=== PATIENT | male | born 1940 | race Asian ===

== ENCOUNTER 2021-01-11 01:21 | Day surgery (SDC) | payer MEDICARE, MEDICAID, SELFPAY ==
[2020-12-30 12:30] VITALS: BMI 21.5
[2021-01-11 10:12] VITALS: BP 154/55; PULSE 66; RESP 16; TEMP 36.2; O2SAT 99; BMI 20.9
--- NOTE | 2021-01-11 10:50 | WPDANESEPPF ---
Anes - Initial Pre Proc Eval Procedure: Operation Date: 01/11/21 11:45 Proposed Procedures p Esophagogastroduodenoscopy & Screening Colonoscopy - Jorge Arias MD Date/Time: 01/11/21 10:50 Surgeon: Jorge Arias MD Pre Op Diagnosis: dysphagia, neoplasm screening Patient Data Age: 80 Gender: M Height: 1.63 m Weight: 55.2 kg Last Vital Signs Temp 36.2 C L 01/11/21 10:12 Pulse 66 01/11/21 10:12 Resp 16 01/11/21 10:12 BP 154/55 H 01/11/21 10:12 Pulse Ox 99 01/11/21 10:12 Allergies Allergy/AdvReac Type Severity Reaction Status Date / Time No Known Allergies Allergy Verified 01/11/21 10:35 Home Medications Medication Instructions Recorded Confirmed Type cetirizine [Zyrtec] 10 mg PO DAILY 12/30/20 01/11/21 History glimepiride 2 mg PO DAILY 12/30/20 01/11/21 History omuh-fyiud-sjo-hyal-mayra borate 3 tablet PO DAILY 12/30/20 01/11/21 History [Move Free Plus MSM] levothyroxine 75 mcg PO DAILY 12/30/20 01/11/21 History lisinopril 10 mg PO DAILY 12/30/20 01/11/21 History metformin 1,000 mg PO BID 12/30/20 01/11/21 History omeprazole 20 mg PO DAILY 12/30/20 01/11/21 History rosuvastatin 10 mg PO DAILY 12/30/20 01/11/21 History Patient hx anesthesia problems: none Family hx anesthesia problems: none PMFSH Past Medical History Medical History (Updated 01/11/21 @ 10:51 by Eduardo Rahman MD) COPD (chronic obstructive pulmonary disease) Diabetes HTN (hypertension) Hypothyroidism Surgical History Surgical History (Updated 01/11/21 @ 10:51 by Eduardo Rahman MD) H/O thyroidectomy Social History Social History Years smoked: 68 Smoking status: Current every day smoker Tobacco type: cigarettes Substance use: never Substance use type: does not use Living arrangements: with family Spiritual care concerns: No Anes - Eval Final PreProcedure Day of Procedure 01/11/21 10:50 Patient weight: normal Heart: regular rate and rhythm Lungs: clear to auscultation Airway: Mallampati scale class II Neurological: alert and oriented Last oral intake: >/= 8 hours ASA classification: III Emergent: no Anesthetic plan: proceed Anesthesia type and monitoring: general GIVS and standard monitoring Informed Consent: The patient's anesthetic plan and its attendant risks and benefits were discussed with the patient/family/POA. Questions were solicited and answers provided to the satisfaction of the patient/family/POA.
[2021-01-11 10:58] LABS: Glucose Point of Care 139 mg/dl (65-105)
[2021-01-11] MEDS: LACTATED RINGERS 1,000 ML 150 ML IV CONT (11:05)
--- NOTE | 2021-01-11 11:13 | PM.HPGS ---
History of Present Illness History of Present Illness Consent: Risks, benefits, and alternatives have been discussed and questions answered. Patient agrees to proceed with procedure. Chief complaint: dysphagia, neoplasm screening Narrative: Chinedu Mcleod is a 80 year old male with dysphagia and previous H pylori treated in the past using omeprazole, also needs screening colonoscopy Review of Systems Constitutional: Constitutional: Denies headache(s) and Denies weakness Eyes: Eyes: Denies blurry vision ENT: Reports Normal hearing present, Denies headache(s) and Denies neck pain Cardiovascular: Cardiovascular: Denies chest pain and Denies dyspnea Respiratory: Respiratory: Denies dyspnea Gastrointestinal: Gastrointestinal: Reports no additional gastrointestinal complaints Genitourinary: Genitourinary: Denies dysuria Musculoskeletal: Musculoskeletal: Denies neck pain Integumentary/Breasts: Skin/Breast: Denies dry skin Neurologic: Reports Normal hearing present, Denies headache(s) and Denies weakness Psychiatric: Psychiatric: Denies anxiety Endocrine: Endocrine: Denies change in body appearance Hematologic/Lymphatic: Hematologic/Lymphatic: Denies easy bleeding Allergic/Immunologic: Allergic/Immunologic: Denies urticaria PMF Past Medical History Medical History (Updated 01/11/21 @ 11:14 by Jorge Arias MD) Colon cancer screening COPD (chronic obstructive pulmonary disease) Diabetes Dysphagia History of Helicobacter infection HTN (hypertension) Hypothyroidism Surgical History Surgical History (Updated 01/11/21 @ 10:51 by Eduardo Rahman MD) H/O thyroidectomy Social History Social History Years smoked: 68 Smoking status: Current every day smoker Tobacco type: cigarettes Substance use: never Substance use type: does not use Living arrangements: with family Spiritual care concerns: No Meds Home Medications and Allergies Home Medications Medication Instructions Recorded Confirmed Type cetirizine [Zyrtec] 10 mg PO DAILY 12/30/20 01/11/21 History glimepiride 2 mg PO DAILY 12/30/20 01/11/21 History dfjl-lovyb-bzl-hyal-mayra borate 3 tablet PO DAILY 12/30/20 01/11/21 History [Move Free Plus MSM] levothyroxine 75 mcg PO DAILY 12/30/20 01/11/21 History lisinopril 10 mg PO DAILY 12/30/20 01/11/21 History metformin 1,000 mg PO BID 12/30/20 01/11/21 History omeprazole 20 mg PO DAILY 12/30/20 01/11/21 History rosuvastatin 10 mg PO DAILY 12/30/20 01/11/21 History Allergies Allergy/AdvReac Type Severity Reaction Status Date / Time No Known Allergies Allergy Verified 01/11/21 10:35 Vital Signs Vital Signs - 24 hr 01/11/21 10:12 Temperature 97.1 F L Pulse Rate 66 Respiratory Rate 16 Blood Pressure 154/55 H Pulse Oximetry 99 Exam Const: General: comfortable and no acute distress HENMT: General nose exam: Normal nares present Eyes: General: appearance normal, both eyes and all related structures Neck: Neck: no JVD Resp: Auscultation: clear to auscultation bilaterally Cardio: Rate: regular rate Rhythm: regular rhythm GI: Inspection: non-distended GI Palp: Yes Soft to palpation Skin: General skin exam: normal color Neuro: General: gait normal Speech: normal speech Extrem: General: normal to inspection Psych: Mental Status: mental status grossly normal Assessment and Plan Assessment and plan (1) Dysphagia: Code(s): R13.10 - Dysphagia, unspecified Status: Acute Assessment and Plan: egd (2) Colon cancer screening: Code(s): Z12.11 - Encounter for screening for malignant neoplasm of colon Status: Acute Assessment and Plan: colonoscopy (3) History of Helicobacter infection: Code(s): Z86.19 - Personal history of other infectious and parasitic diseases Status: Acute Assessment and Plan: egd with bx
[2021-01-11 12:02] VITALS: BP 118/68; PULSE 58; RESP 25; O2SAT 100
[2021-01-11 12:12] VITALS: BP 134/73; PULSE 55; RESP 23; O2SAT 100
[2021-01-11 12:22] VITALS: BP 163/72; PULSE 59; RESP 21; O2SAT 100
== END 2021-01-11 12:32 | disposition home or self-care (01) ==
PROVIDERS: PCP Emergency Medicine; Visit Provider Internal Medicine Gastroenterology
PROC: 0DJ08ZZ Inspection of Upper Intestinal Tract, Via Natural or Artificial Opening Endoscopic (ICD-10-PCS; CPT 43235; principal; 2021-01-11 11:45)
DX: C16.2 Malignant neoplasm of body of stomach (principal); K29.50 Unspecified chronic gastritis without bleeding; B96.81 Helicobacter pylori [H. pylori] as the cause of diseases classified elsewhere; R13.10 Dysphagia, unspecified; Z12.11 Encounter for screening for malignant neoplasm of colon; K64.8 Other hemorrhoids; D12.5 Benign neoplasm of sigmoid colon; I10 Essential (primary) hypertension; E11.9 Type 2 diabetes mellitus without complications; J44.9 Chronic obstructive pulmonary disease, unspecified; E03.9 Hypothyroidism, unspecified; Z79.84 Long term (current) use of oral hypoglycemic drugs; F17.210 Nicotine dependence, cigarettes, uncomplicated
CPT/HCPCS: 45385; 43239; 82948; 87081; 88305; 88342; J2704; J7120

== ENCOUNTER 2021-01-13 07:01 | Outpatient (CLI) | payer MEDICARE, MEDICAID, SELFPAY ==
--- NOTE | ~2021-01-13 | CT_ITS ---
EXAMINATION: CT abdomen pelvis w con DATE: 01/13/2021 08:10 INDICATION: 3 cm gastric body mass TECHNIQUE: Computed tomography (CT) of the abdomen and pelvis was performed with 100 cc Omnipaque 350 intravenous contrast. Automated exposure control and iterative reconstruction technique were employe d. Exam dose: 289.52 mGy-cm total exam DLP. COMPARISON: None. FINDINGS: Probable calcified lingular pulmonary granuloma. There is mild dependent bilateral lower lo be atelectasis. Mild cardiomegaly. No pericardial or pleural effusion. Small sliding hiatal hernia. There is hepatic steatosis. No hepatic space-occupying mass lesion is evident. The gallbladder is con tracted. No bile duct or pancreatic duct dilatation. No pancreatic mass lesion or calcification is ev ident. Normal splenic size. Normal morphology of the adrenal glands. No renal mass lesion or urinary tract calculus or hydroureteronephrosis. Normal caliber of the abdominal aorta. No intraperitoneal or retroperitoneal or pelvic mass lesion or adenopathy or ascites. Bilateral hydroceles. Nonspecific mild diffuse thickening of the urinary bladder wall. There is moderate prostate enlargeme nt and calcification. There is some soft tissue thickening along the greater curvature of the body of the stomach; recommen d endoscopic correlation and, if appropriate, biopsy. No CT evidence of appendicitis. No bowel obstruction or intraperitoneal free air. Up to 1.7 cm sclerotic lesion of the right ilium. Additional smaller right iliac sclerotic lesion and sclerotic lesion of the left femoral head. These are likely bone islands. Osteosclerotic prostate me tastasis is not excluded. Radionuclide bone scan would differentiate bone islands from osteosclerotic metastases. Degenerative changes of the thoracic and lumbar spine. IMPRESSION: Hepatic steatosis Small sliding hiatal hernia Focal soft tissue tissue thickening along the greater curvature of the stomach; recommend endoscopic correlation, with biopsy if necessary Prostate enlargement and calcification Moderate thickening of the wall of the urinary bladder, possibly due to bladder outlet obstruction Probable bone island of the right ilium and left femoral head; if there is concern for osteosclerotic metastasis, consider radionuclide bone scan Reviewed, dictated and finalized at [facility]. Reviewed, dictated and finalized at [facility]. IMPRESSION: Hepatic steatosis Small sliding hiatal hernia Focal soft tissue tissue thickening along the greater curvature of the stomach; recommend endoscopic correlation, with biopsy if necessary Prostate enlargement and calcification Moderate thickening of the wall of the urinary bladder, possibly due to bladder outlet obstruction Probable bone island of the right ilium and left femoral head; if there is conc bobo for osteosclerotic metastasis, consider radionuclide bone scan
== END 2021-01-13 07:02 | disposition home or self-care (01) ==
PROVIDERS: PCP Emergency Medicine; Visit Provider Internal Medicine Gastroenterology
DX: R13.10 Dysphagia, unspecified (principal); K31.89 Other diseases of stomach and duodenum; K76.0 Fatty (change of) liver, not elsewhere classified; K44.9 Diaphragmatic hernia without obstruction or gangrene
CPT/HCPCS: 74177; Q9967